=== PATIENT | female | born 1995 | race Caucasian/White ===

== ENCOUNTER 2018-03-07 16:42 | Inpatient (IN) | payer OTHER ==
[~2018-03-07] VITALS: Ht 172.7 cm; Wt 117.9 kg
[~2018-03-07 16:42] MED LIST: PNV1TABL8 PO; PREN-385 PO
[2018-03-07] MEDS ORDERED: TRA200 PO (17:39)
[2018-03-07] MEDS ORDERED: MISOPROSTOL 25 MCG TAB VG PRN (17:40)
[2018-03-07] MEDS ORDERED: METHYLERGONOVINE 0.2 MG/ML AMP IM PRN (17:40)
[2018-03-07] MEDS ORDERED: PROMETHAZINE 25 MG/ML VIAL IVP PRN (17:40)
[2018-03-07] MEDS ORDERED: CARBOPROST 250 MCG/ML AMP IM PRN (17:40)
[2018-03-07] MEDS ORDERED: NALBUPHINE HYDROCHLORIDE 10 MG/ML VIAL IVP PRN (17:40)
[2018-03-07] MEDS ORDERED: OXYTOCIN 10 UNITS/ML VIAL IM SCH (18:00)
[2018-03-07] MEDS ORDERED: AMPICILLIN 2,000 MG in NACL 0.9% MINI-BAG PLUS 100 ML IV SCH (18:00)
[2018-03-07] MEDS ORDERED: AMPICILLIN 2,000 MG VIAL ONE (18:06)
[2018-03-07] MEDS: LACTATED RINGERS 1,000 ML IV SCH (18:20)
[2018-03-07 19:19] VITALS: BP 129/72
[2018-03-07 19:28] LABS: BASOPHILS % (AUTO) 0.4 % (0.0-2.0); EOSINOPHILS # (AUTO) 0.1 K/uL (0-0.4); HEMATOCRIT 33.6 % (36-48); HEMOGLOBIN 10.9 g/dL (12.0-16.0); LYMPHOCYTES # (AUTO) 1.7 K/uL (2.5-16.5); LYMPHOCYTES % (AUTO) 18.6 % (20.5-51.1); MEAN CORPUSCULAR HEMOGLOBIN 26 pg (27-31); MEAN CORPUSCULAR HGB CONC 33 g/dL (33-37); MEAN CORPUSCULAR VOLUME 80.7 fL (80-94); MONOCYTES # (AUTO) 0.5 K/uL (0.8-1.0); MONOCYTES % (AUTO) 5.7 % (1.7-9.3); NEUTROPHILS # (AUTO) 6.8 K/uL (1.8-7.7); NEUTROPHILS % (AUTO) 74.3 % (42.2-75.2); PLATELET COUNT (AUTO) 232 K/uL (140-450); RED BLOOD CELL COUNT(AUTO) 4.16 MIL/uL (4.20-5.40); RED CELL DISTRIBUTION WIDTH 13.4 % (11.6-13.7); WHITE BLOOD COUNT (AUTO) 9.2 K/uL (4.8-10.8)
[2018-03-07 19:31] LABS: APPEARANCE,URINE CLEAR (CLEAR); BILIRUBIN,URINE 1+ (NEGATIVE); BLOOD, URINE NEGATIVE (NEGATIVE); COLOR,URINE BROWN (YELLOW); LEUKOCYTE ESTERASE ,URINE TRACE (NEGATIVE); NITRITE, URINE NEGATIVE (NEGATIVE); UGLUCOSE NEGATIVE (NEGATIVE)
[2018-03-07 19:42] LABS: RBC,URINE 0-5 (RARE) /HPF (0-5); WBC,URINE 0-5 (RARE) /HPF (0-5)
[2018-03-07 19:43] LABS: URINE AMORPHOUS URATE 2+ /HPF (None Seen)
[2018-03-07 19:44] LABS: ALBUMIN 2.5 g/dL (3.4-5.0); ANION GAP 11.9 (8-16); CARBON DIOXIDE 26.2 mmol/L (21-32); CREATININE 0.6 mg/dL (0.6-1.3); POTASSIUM 4.1 mmol/L (3.5-5.1); TOTAL BILIRUBIN 0.6 mg/dL (0.0-1.0)
[2018-03-07] MEDS ORDERED: OXYTOCIN 20 UNITS in LACTATED RINGERS 1,000 ML IV SCH (21:02)
[2018-03-07] MEDS ORDERED: NALBUPHINE 10 MG/ML AMP IVP PRN (21:05)
[2018-03-07] MEDS ORDERED: MISOPROSTOL 25 MCG TAB VG ONE (21:05)
[2018-03-07] MEDS ORDERED: MISOPROSTOL 25 MCG TAB ONE (21:09)
[2018-03-07] MEDS ORDERED: AMPICILLIN 1,000 MG VIAL ONE (22:10)
[2018-03-07] MEDS: AMPICILLIN 1,000 MG in NACL 0.9% MINI-BAG PLUS 50 ML IV SCH (22:30)
[2018-03-08] MEDS ORDERED: OXYTOCIN 10 UNITS/ML VIAL IM ONE (00:40)
[2018-03-08] MEDS ORDERED: AMPICILLIN 1,000 MG VIAL ONE ×4 (02:12→16:37)
[2018-03-08] MEDS: AMPICILLIN 1,000 MG in NACL 0.9% MINI-BAG PLUS 50 ML IV SCH ×2 (02:30→06:30)
[2018-03-08] MEDS ORDERED: OXYTOCIN 20 UNITS/LR PREMIX 1,000 ML IV ONE (03:53)
[2018-03-08] MEDS ORDERED: BUPIVACAINE 0.125%/NS PREMIX 250 ML ONE (05:51)
[2018-03-08] MEDS: LACTATED RINGERS 1,000 ML IV SCH (06:08)
[2018-03-08] MEDS ORDERED: OXYTOCIN 10 UNITS/ML VIAL ONE (18:53)
[2018-03-08] MEDS ORDERED: METHYLERGONOVINE 0.2 MG/ML AMP ONE (20:30)
[2018-03-08] MEDS ORDERED: CARBOPROST 250 MCG/ML AMP IM ONE ×3 (20:32→21:00)
[2018-03-08] MEDS ORDERED: MISOPROSTOL 100 MCG TAB ONE (20:36)
[2018-03-08] MEDS ORDERED: OXYTOCIN 20 UNITS in LACTATED RINGERS 1,000 ML IV SCH ×2 (20:46→21:02)
[2018-03-08] MEDS ORDERED: oxyCODONE/APAP 5/325 MG 1 TAB TAB PO PRN (20:50)
[2018-03-08] MEDS ORDERED: ACETAMINOPHEN 325 MG TAB PO PRN (20:50)
[2018-03-08] MEDS ORDERED: MISOPROSTOL 100 MCG TAB VG SCH (20:50)
[2018-03-08] MEDS ORDERED: IBUPROFEN 600 MG TAB PO PRN (20:50)
[2018-03-08] MEDS ORDERED: MEASLES, MUMPS, AND RUBELLA 1 VIAL SQVAC PRN (20:50)
[2018-03-08] MEDS ORDERED: BISACODYL 5 MG TABEC PO PRN (20:50)
[2018-03-08] MEDS ORDERED: ONDANSETRON 4 MG/2 ML VIAL ONE (20:52)
[2018-03-08] MEDS ORDERED: ONDANSETRON 4 MG/2 ML VIAL IVP SCH (22:00)
--- NOTE | 2018-03-09 06:37 | NUR ---
PATIENT HAS BEEN SCREENED AND CATEGORIZED LOW NUTRITION RISK. PATIENT WILL BE SEEN WITHIN 7 DAYS OF ADMISSION. 03/14/18 MIGUEL PARK MS, RDN
[2018-03-09 07:35] LABS: BASOPHILS % (AUTO) 0.2 % (0.0-2.0); EOSINOPHILS # (AUTO) 0.1 K/uL (0-0.4); EOSINOPHILS % (AUTO) 0.5 % (0.0-4.0); HEMATOCRIT 28.9 % (36-48); HEMOGLOBIN 9.8 g/dL (12.0-16.0); LYMPHOCYTES # (AUTO) 2.3 K/uL (2.5-16.5); MEAN CORPUSCULAR HEMOGLOBIN 27 pg (27-31); MEAN CORPUSCULAR HGB CONC 34 g/dL (33-37); MEAN CORPUSCULAR VOLUME 80.1 fL (80-94); MONOCYTES # (AUTO) 0.7 K/uL (0.8-1.0); MONOCYTES % (AUTO) 5.4 % (1.7-9.3); NEUTROPHILS # (AUTO) 10.4 K/uL (1.8-7.7); NEUTROPHILS % (AUTO) 76.9 % (42.2-75.2); PLATELET COUNT (AUTO) 201 K/uL (140-450); RED CELL DISTRIBUTION WIDTH 13.3 % (11.6-13.7); WHITE BLOOD COUNT (AUTO) 13.6 K/uL (4.8-10.8)
== END 2018-03-10 14:25 | disposition home or self-care (01) | DRG 560 ==
LOC: MLD 16:42 → MFCC 03-09 03:11
PROVIDERS: ADMIT Obstetrics & Gynecology; ATTEND Obstetrics & Gynecology
PROC: 10E0XZZ Delivery of Products of Conception, External Approach (ICD-10-PCS; principal; 2018-03-08)
PROC: 10907ZC Drainage of Amniotic Fluid, Therapeutic from Products of Conception, Via Natural or Artificial Opening (ICD-10-PCS; 2018-03-08)
PROC: 3E0P7VZ Introduction of Hormone into Female Reproductive, Via Natural or Artificial Opening (ICD-10-PCS; 2018-03-08)
PROC: 00HU33Z Insertion of Infusion Device into Spinal Canal, Percutaneous Approach (ICD-10-PCS; 2018-03-08)
PROC: 3E0R3BZ Introduction of Anesthetic Agent into Spinal Canal, Percutaneous Approach (ICD-10-PCS; 2018-03-08)
PROC: 3E0234Z Introduction of Serum, Toxoid and Vaccine into Muscle, Percutaneous Approach (ICD-10-PCS; 2018-03-09)
DX: O14.94 Unspecified pre-eclampsia, complicating childbirth (principal); Z23 Encounter for immunization; Z37.0 Single live birth; Z3A.40 40 weeks gestation of pregnancy; Z83.3 Family history of diabetes mellitus; Z80.9 Family history of malignant neoplasm, unspecified; Z82.49 Family history of ischemic heart disease and other diseases of the circulatory system; Z83.79 Family history of other diseases of the digestive system
CPT/HCPCS: 36415; 59200; 59409; 76815; 80053; 81001; 85025; 86592; 86886; 86900; 86901; 87086; 90715; J0290; J2210; J2405; J2590; J3490; J7120; Q0092